=== PATIENT | female | born 1990 | race African-American/Black ===

== ENCOUNTER 2020-07-18 17:20 | Emergency (ER) | payer SELFPAY ==
[~2020-07-18] VITALS: Ht 160 cm; Wt 61.2 kg
--- NOTE | 2020-07-18 17:39 | NUR ---
at bedside for eval.
--- NOTE | 2020-07-18 18:42 | NUR ---
urine specimen collected and sent to lab.
[2020-07-18 19:11] LABS: BILIRUBIN,URINE NEGATIVE (NEGATIVE); COLOR,URINE AMBER (YELLOW); LEUKOCYTE ESTERASE ,URINE TRACE (NEGATIVE); NITRITE, URINE NEGATIVE (NEGATIVE); PH,URINE 8.5 (5.0-8.0); PROTEIN,URINE 30 mg/dl (NEGATIVE); UGLUCOSE NEGATIVE (NEGATIVE); UROBILINOGEN,URINE 0.2 EU/dL (0.2)
[2020-07-18 19:23] LABS: BACTERIA,URINE Few /HPF (None Seen); RBC,URINE TOO NUMEROUS TO COUN /HPF (0-2); SQUAMOUS EPITHELIAL CELL,UR Few /HPF (None Seen)
--- NOTE | 2020-07-18 19:36 | NUR ---
Patient discharged to home in stable condition. Written and verbal after care instructions given. Patient verbalizes understanding of instruction. Pt ambulatory with a steady gait
[2020-07-18 19:41] VITALS: BP 129/88
== END 2020-07-18 19:36 | disposition home or self-care (01) ==
LOC: ER 17:24
DX: N94.6 Dysmenorrhea, unspecified (principal); F32.9 Major depressive disorder, single episode, unspecified; F41.9 Anxiety disorder, unspecified; Z88.6 Allergy status to analgesic agent
CPT/HCPCS: 81001; 84703-TC